=== PATIENT | female | born 1950 | race Caucasian/White ===

== ENCOUNTER 2016-06-25 14:54 | Inpatient (IN) | payer MEDICARE, MEDICAID, OTHER ==
[~2016-06-25 14:54] MED LIST: ANTACID650 MG PO; ASPIRIN81 MG PO; BACTROBAN22 GM TP; CALCIUM ACETAT667 M3 PO; CALCIUM500 M4 PO; CARDIZEM30 MG PO; COMPAZINE10 MG PO; DEXAMETHASONE4 M1 PO; FLUDROCORTISON0.1 M1 PO; HECTOROL2 MCG/1 ML IV; LASIX PO; LASIX80 MG PO; LOPERAMIDE2 M2 PO; MIDODRINE HCL5 M1 PO; MINIPRESS1 MG PO; MUCINEX600 M1 PO; NORCO 5/325 TAB1 TAB PO; NORCO 5/3251 TA2 PO; NORMODYNE200 MG PO; NORVASC5 M1 PO; NORVASC5 MG PO; OYSCO-500500 MG PO; PHOSLO PO; PHOSLYRA667 MG/5 M PO; RENAPLEX-D PO; RENVELA800 M1 PO; ROCALTROL0.25 MC1 PO; SENSIPAR60 M1 PO; VELPHORO500 MG PO; VENOFER100 MG/5 M IV; VITAMIN D2000 UNIT PO; ZOFRAN8 M1 PO
[2016-06-25] MEDS ORDERED: DIALYSIS (15:24)
[2016-06-25] MEDS ORDERED: TAXOL (15:26)
[2016-06-25] MEDS ORDERED: CYTOXAN (15:27)
[2016-06-25] MEDS ORDERED: DEXAMETHASONE4 M1 PO (15:43)
[2016-06-25 17:11] LABS: ANION GAP 13 mmol/L (0-20); BLOOD UREA NITROGEN 25 mg/dl (6-24); CALCIUM 7.1 mg/dl (8.5-10.5); CARBON DIOXIDE-VENOUS 28 mmol/L (22-32); CHLORIDE 96 mmol/l (96-110); CREATININE 5.49 mg/dl (0.50-1.10); GLUCOSE 94 mg/dL (70-110); SODIUM 134 mmol/L (135-145); eGFR VALUE FOR BLACK 9 mL/Min
[2016-06-26 06:49] LABS: BASO % 0.2 % (0-2); EOS % 0.3 % (0-7); HGB-HEMOGLOBIN 7.4 gm/dl (12.0-15.5); IMMATURE GRANULOCYTES PERCENT 3.3 % (0-0.3); LYMPH % 6.5 % (20-45); MCH (MEAN CORPUSCULAR HGB) 28.5 pg (28.0-32.0); MCHC MEAN CORPUSCULAR HGB CONC 34.6 % (32.0-36.0); MCV (MEAN CELL VOLUME) 82.3 fl (82.0-96.0); MEAN PLATELET VOLUME 8.9 cmc (9.4-12.4); MONO % 5.7 % (0-12); MONOCYTE ABSOLUTE COUNT 0.9 tho/cmm (0.0-1.2); NEUTROPHIL ABSOLUTE COUNT 12.8 tho/cmm (1.6-8.0); NEUTROPHIL-AUTOMATED 12.8 tho/cmm (1.6-8.0); PLATELET COUNT 219 tho/cmm (150-450); RED CELL DISTRIBUTION WIDTH 14.7 % (12.4-16.4); WHITE BLOOD COUNT 15.2 tho/cmm (4.0-10.0)
[2016-06-26 06:57] LABS: HCT-HEMATOCRIT 21.4 % (34.0-49.0)
[2016-06-26 06:59] LABS: ALB/GLOB RATIO 0.3 (0.8-2.0); ALBUMIN 1.4 g/dl (3.5-5.0); ALKALINE PHOSPHATASE 286 U/L (33-138); ALT/SGPT 12 U/L (12-78); ANION GAP 14 mmol/L (0-20); AST/SGOT 31 U/L (10-40); BILIRUBIN,TOTAL 0.6 mg/dl (0-1.5); BLOOD UREA NITROGEN 27 mg/dl (6-24); CALCIUM 6.7 mg/dl (8.5-10.5); CARBON DIOXIDE-VENOUS 25 mmol/L (22-32); CHLORIDE 96 mmol/l (96-110); CREATININE 5.88 mg/dl (0.50-1.10); GLUCOSE 103 mg/dL (70-110); MAGNESIUM 1.7 mg/dl (1.8-2.6); POTASSIUM 3.5 mmol/L (3.7-5.1); SODIUM 131 mmol/L (135-145); eGFR VALUE FOR BLACK 8 mL/Min
[2016-06-26 07:09] LABS: PHOSPHOROUS 0.8 mg/dl (2.5-4.9)
[2016-06-26 16:53] LABS: PROCALCITONIN 11.05 ng/ml (0.05-0.09)
[2016-06-27 05:43] LABS: BASO % 0.2 % (0-2); EOS % 0.2 % (0-7); IMMATURE GRANULOCYTES ABSOLUTE 0.46 tho/cmm (0-0.03); IMMATURE GRANULOCYTES PERCENT 2.8 % (0-0.3); LYMPH % 6.9 % (20-45); LYMPH ABSOLUTE COUNT 1.1 tho/cmm (0.8-4.5); MCV (MEAN CELL VOLUME) 81.7 fl (82.0-96.0); MEAN PLATELET VOLUME 9.2 cmc (9.4-12.4); MONO % 5.3 % (0-12); MONOCYTE ABSOLUTE COUNT 0.9 tho/cmm (0.0-1.2); NEUTROPHILS % 84.6 % (40-80); PLATELET COUNT 218 tho/cmm (150-450); RED BLOOD COUNT 3.28 mil/cmm (4.00-5.20); RED CELL DISTRIBUTION WIDTH 15.3 % (12.4-16.4); WHITE BLOOD COUNT 16.6 tho/cmm (4.0-10.0)
[2016-06-27 05:53] LABS: ANION GAP 15 mmol/L (0-20); BLOOD UREA NITROGEN 12 mg/dl (6-24); CARBON DIOXIDE-VENOUS 19 mmol/L (22-32); CHLORIDE 106 mmol/l (96-110); GLUCOSE 85 mg/dL (70-110); MAGNESIUM 1.7 mg/dl (1.8-2.6); POTASSIUM 3.1 mmol/L (3.7-5.1); SODIUM 137 mmol/L (135-145)
[2016-06-27 05:56] LABS: CREATININE 3.14 mg/dl (0.50-1.10); eGFR VALUE FOR BLACK 17 mL/Min
[2016-06-27 05:59] LABS: CALCIUM 5.7 mg/dl (8.5-10.5); PHOSPHOROUS 0.8 mg/dl (2.5-4.9)
[2016-06-27 06:03] LABS: HCT-HEMATOCRIT 26.8 % (34.0-49.0); HGB-HEMOGLOBIN 9.4 gm/dl (12.0-15.5); MCH (MEAN CORPUSCULAR HGB) 28.6 pg (28.0-32.0); MCHC MEAN CORPUSCULAR HGB CONC 35.1 % (32.0-36.0)
[2016-06-27 10:26] LABS: INR 3.6 INR (0.9-1.1); PROTHROMBIN TIME 43.5 SECONDS (9.0-13.6)
[2016-06-28 05:26] LABS: BASO % 0.2 % (0-2); EOS % 0.3 % (0-7); EOSINOPHIL ABSOLUTE COUNT 0.1 tho/cmm (0.0-0.7); HCT-HEMATOCRIT 26.7 % (34.0-49.0); HGB-HEMOGLOBIN 9.2 gm/dl (12.0-15.5); IMMATURE GRANULOCYTES ABSOLUTE 0.69 tho/cmm (0-0.03); LYMPH ABSOLUTE COUNT 1.2 tho/cmm (0.8-4.5); MCH (MEAN CORPUSCULAR HGB) 28.4 pg (28.0-32.0); MCHC MEAN CORPUSCULAR HGB CONC 34.5 % (32.0-36.0); MCV (MEAN CELL VOLUME) 82.4 fl (82.0-96.0); MEAN PLATELET VOLUME 9.1 cmc (9.4-12.4); MONOCYTE ABSOLUTE COUNT 0.9 tho/cmm (0.0-1.2); NEUTROPHIL ABSOLUTE COUNT 14.4 tho/cmm (1.6-8.0); NEUTROPHIL-AUTOMATED 14.4 tho/cmm (1.6-8.0); NEUTROPHILS % 83.5 % (40-80); PLATELET COUNT 257 tho/cmm (150-450); RED BLOOD COUNT 3.24 mil/cmm (4.00-5.20); WHITE BLOOD COUNT 17.3 tho/cmm (4.0-10.0)
[2016-06-28 05:49] LABS: PARTIAL THROMBOPLASTIN TIME 27 SECONDS (22-36)
[2016-06-28 06:04] LABS: ALBUMIN 1.5 g/dl (3.5-5.0); ANION GAP 17 mmol/L (0-20); BLOOD UREA NITROGEN 21 mg/dl (6-24); CARBON DIOXIDE-VENOUS 21 mmol/L (22-32); CHLORIDE 102 mmol/l (96-110); GLUCOSE 89 mg/dL (70-110); POTASSIUM 3.8 mmol/L (3.7-5.1); SODIUM 136 mmol/L (135-145)
[2016-06-28 06:09] LABS: ALB/GLOB RATIO 0.3 (0.8-2.0); ALKALINE PHOSPHATASE 334 U/L (33-138); ALT/SGPT 13 U/L (12-78); AST/SGOT 22 U/L (10-40); BILIRUBIN,TOTAL 0.4 mg/dl (0-1.5); PHOSPHOROUS 2.2 mg/dl (2.5-4.9)
[2016-06-28 06:27] LABS: CREATININE 5.18 mg/dl (0.50-1.10); eGFR VALUE FOR BLACK 9 mL/Min
[2016-06-28 06:28] LABS: CALCIUM 6.4 mg/dl (8.5-10.5)
[2016-06-28 07:11] LABS: INR 1.2 INR (0.9-1.1); PROTHROMBIN TIME 14.4 SECONDS (9.0-13.6)
[2016-06-29 09:09] LABS: HCT-HEMATOCRIT 27.6 % (34.0-49.0); HGB-HEMOGLOBIN 9.3 gm/dl (12.0-15.5); MCH (MEAN CORPUSCULAR HGB) 27.9 pg (28.0-32.0); MCHC MEAN CORPUSCULAR HGB CONC 33.7 % (32.0-36.0); MCV (MEAN CELL VOLUME) 82.9 fl (82.0-96.0); MEAN PLATELET VOLUME 8.9 cmc (9.4-12.4); NEUTROPHIL-AUTOMATED 14.1 tho/cmm (1.6-8.0); PLATELET COUNT 268 tho/cmm (150-450); RED BLOOD COUNT 3.33 mil/cmm (4.00-5.20); RED CELL DISTRIBUTION WIDTH 16.4 % (12.4-16.4); WHITE BLOOD COUNT 17.6 tho/cmm (4.0-10.0)
[2016-06-29 09:30] LABS: BASO % 0.3 % (0-2); BASO ABSOLUTE COUNT 0.1 tho/cmm (0.0-0.2); EOS % 0.3 % (0-7); EOSINOPHIL ABSOLUTE COUNT 0.1 tho/cmm (0.0-0.7); IMMATURE GRANULOCYTES ABSOLUTE 0.92 tho/cmm (0-0.03); IMMATURE GRANULOCYTES PERCENT 5.2 % (0-0.3); INR 1.3 INR (0.9-1.1); LYMPH % 9.2 % (20-45); LYMPH ABSOLUTE COUNT 1.6 tho/cmm (0.8-4.5); MONO % 5.2 % (0-12); MONOCYTE ABSOLUTE COUNT 0.9 tho/cmm (0.0-1.2); NEUTROPHIL ABSOLUTE COUNT 14.1 tho/cmm (1.6-8.0); NEUTROPHILS % 79.8 % (40-80); PROTHROMBIN TIME 15.2 SECONDS (9.0-13.6)
[2016-06-29 09:51] LABS: ALB/GLOB RATIO 0.4 (0.8-2.0); ALBUMIN 1.6 g/dl (3.5-5.0); ALKALINE PHOSPHATASE 304 U/L (33-138); ALT/SGPT 11 U/L (12-78); ANION GAP 18 mmol/L (0-20); AST/SGOT 18 U/L (10-40); BILIRUBIN,TOTAL 0.4 mg/dl (0-1.5); BLOOD UREA NITROGEN 12 mg/dl (6-24); CARBON DIOXIDE-VENOUS 20 mmol/L (22-32); CHLORIDE 103 mmol/l (96-110); GLUCOSE 94 mg/dL (70-110); MAGNESIUM 1.9 mg/dl (1.8-2.6); PHOSPHOROUS 2.6 mg/dl (2.5-4.9); POTASSIUM 3.7 mmol/L (3.7-5.1); SODIUM 137 mmol/L (135-145)
[2016-06-29 10:01] LABS: CREATININE 3.77 mg/dl (0.50-1.10); eGFR VALUE FOR BLACK 14 mL/Min
[2016-06-29 10:02] LABS: CALCIUM 5.5 mg/dl (8.5-10.5)
[2016-06-30 05:49] LABS: BLOOD UREA NITROGEN 19 mg/dl (6-24); CALCIUM 6.6 mg/dl (8.5-10.5); CARBON DIOXIDE-VENOUS 22 mmol/L (22-32); CHLORIDE 101 mmol/l (96-110); GLUCOSE 82 mg/dL (70-110); SODIUM 135 mmol/L (135-145); eGFR VALUE FOR BLACK 10 mL/Min
[2016-06-30 05:52] LABS: ANION GAP 17 mmol/L (0-20); CREATININE 4.85 mg/dl (0.50-1.10); POTASSIUM 4.5 mmol/L (3.7-5.1)
[2016-06-30 05:53] LABS: HCT-HEMATOCRIT 30.2 % (34.0-49.0); MCH (MEAN CORPUSCULAR HGB) 27.7 pg (28.0-32.0); MCHC MEAN CORPUSCULAR HGB CONC 33.1 % (32.0-36.0); MCV (MEAN CELL VOLUME) 83.7 fl (82.0-96.0); NEUTROPHIL-AUTOMATED 14.4 tho/cmm (1.6-8.0); PLATELET COUNT 324 tho/cmm (150-450); RED BLOOD COUNT 3.61 mil/cmm (4.00-5.20); RED CELL DISTRIBUTION WIDTH 16.9 % (12.4-16.4); WHITE BLOOD COUNT 18.6 tho/cmm (4.0-10.0)
[2016-06-30 06:22] LABS: BASO % 0.4 % (0-2); BASO ABSOLUTE COUNT 0.1 tho/cmm (0.0-0.2); EOS % 0.4 % (0-7); EOSINOPHIL ABSOLUTE COUNT 0.1 tho/cmm (0.0-0.7); IMMATURE GRANULOCYTES ABSOLUTE 1.07 tho/cmm (0-0.03); IMMATURE GRANULOCYTES PERCENT 5.7 % (0-0.3); LYMPH % 9.8 % (20-45); LYMPH ABSOLUTE COUNT 1.8 tho/cmm (0.8-4.5); MONO % 6.2 % (0-12); MONOCYTE ABSOLUTE COUNT 1.2 tho/cmm (0.0-1.2); NEUTROPHIL ABSOLUTE COUNT 14.4 tho/cmm (1.6-8.0); NEUTROPHILS % 77.5 % (40-80)
[2016-06-30] MEDS ORDERED: IMODIUM A-D2 M4 PO (15:59)
[2016-06-30] MEDS ORDERED: CEFUROXIME500 M1 PO (16:01)
== END 2016-06-30 16:20 | DRG 871 ==
LOC: 5WF 14:54
PROVIDERS: Internal Medicine Gastroenterology; Internal Medicine Medical Oncology; Internal Medicine Nephrology; Physician Assistant Medical; Radiology Diagnostic Radiology; ADMIT Internal Medicine Hematology & Oncology
PROC: 30233N1 Transfusion of Nonautologous Red Blood Cells into Peripheral Vein, Percutaneous Approach (ICD-10-PCS; 2016-06-25)
PROC: 5A1D60Z (ICD-10-PCS; 2016-06-26)
PROC: 02HV33Z Insertion of Infusion Device into Superior Vena Cava, Percutaneous Approach (ICD-10-PCS; 2016-06-27)
PROC: 0DBH8ZX Excision of Cecum, Via Natural or Artificial Opening Endoscopic, Diagnostic (ICD-10-PCS; principal; 2016-06-28)
PROC: 0DBE8ZX Excision of Large Intestine, Via Natural or Artificial Opening Endoscopic, Diagnostic (ICD-10-PCS; principal; 2016-06-28)
PROC: 0DB98ZX Excision of Duodenum, Via Natural or Artificial Opening Endoscopic, Diagnostic (ICD-10-PCS; principal; 2016-06-28)
PROC: 0DB68ZX Excision of Stomach, Via Natural or Artificial Opening Endoscopic, Diagnostic (ICD-10-PCS; principal; 2016-06-28)
DX: A41.51 Sepsis due to Escherichia coli [E. coli] (principal); K29.71 Gastritis, unspecified, with bleeding; N18.6 End stage renal disease; E11.22 Type 2 diabetes mellitus with diabetic chronic kidney disease; N25.81 Secondary hyperparathyroidism of renal origin; C50.912 Malignant neoplasm of unspecified site of left female breast; D63.1 Anemia in chronic kidney disease; E87.1 Hypo-osmolality and hyponatremia; Q61.2 Polycystic kidney, adult type; Z17.0 Estrogen receptor positive status [ER+]; Z99.2 Dependence on renal dialysis; E87.6 Hypokalemia; E83.51 Hypocalcemia; I95.0 Idiopathic hypotension; E83.39 Other disorders of phosphorus metabolism; D72.829 Elevated white blood cell count, unspecified; T45.8X5A Adverse effect of other primarily systemic and hematological agents, initial encounter; K57.30 Diverticulosis of large intestine without perforation or abscess without bleeding; K64.8 Other hemorrhoids
CPT/HCPCS: A9540; A9558; C1751; C8929; G0257; G0378; G0379; G8978-GP-CJ; G8979-GP-CI; J0610; J0696; J0885; J2405; J2765; J3430; J3475; J3480; J7050; P9016; P9017

== ENCOUNTER 2016-10-22 08:55 | Day surgery (SDC) | payer MEDICARE ==
[~2016-10-22] VITALS: Ht 163.8 cm; Wt 72.0 kg
[~2016-10-22 08:55] MED LIST changes: +CEFUROXIME500 M1 PO; +CYTOXAN; +DIALYSIS; +IMODIUM A-D2 M4 PO; +TAXOL
[2016-10-22] MEDS ORDERED: PLAVIX75 M1 PO (09:31)
[2016-10-22] MEDS ORDERED: FEMARA2.5 M1 PO (09:31)
[2016-10-22] MEDS ORDERED: PROTONIX40 M2 PO (09:31)
== END 2016-10-22 10:55 ==
LOC: RADSP 08:55 → SHSC 08:55 → RADSP 10:00
PROC: 05783ZZ Dilation of Left Axillary Vein, Percutaneous Approach (ICD-10-PCS; principal; 2016-10-22)
DX: T82.858A Stenosis of other vascular prosthetic devices, implants and grafts, initial encounter (principal); N18.6 End stage renal disease; Z79.899 Other long term (current) drug therapy; Y83.8 Other surgical procedures as the cause of abnormal reaction of the patient, or of later complication, without mention of misadventure at the time of the procedure; Z98.890 Other specified postprocedural states
CPT/HCPCS: C1725; C1769; Q9967